=== PATIENT | male | born 1990 | race African-American/Black ===

== ENCOUNTER 2018-10-04 14:49 | Emergency (ER) | payer MEDICAID ==
[~2018-10-04] VITALS: Ht 167.6 cm; Wt 80.0 kg
[2018-10-04 14:56] VITALS: BP 123/74
== END 2018-10-04 19:45 | disposition left against medical advice (07) ==
LOC: ER 15:00
DX: R51 Headache (principal); Z53.21 Procedure and treatment not carried out due to patient leaving prior to being seen by health care provider